=== PATIENT | female | born 1950 | race Two or more races ===

== ENCOUNTER 2025-07-23 06:51 | Emergency (ER) | payer MEDICARE, MEDICAID, SELFPAY ==
[2025-07-23 06:56] VITALS: BP 151/76; PULSE 95; RESP 18; TEMP 36.9; O2SAT 98
--- NOTE | 2025-07-23 07:04 | EKG_ITS ---
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
[2025-07-23 07:05] VITALS: PULSE 102; O2SAT 95; BMI 33.3
--- NOTE | 2025-07-23 07:06 | XR_ITS ---
Examination: CT brain head without contrast. 2-D sagittal coronal reconstructions Date and time of exam: July 23, 2025, 0744 hours, comparison March 19, 2024 INDICATIONS: Diagnosis Parkinson's disease with dizziness and vertigo today CTDI: vol (mGy): 48.1 DLP: (mGycm): 919 Technique: Multiple CT axial sections of the brain have been obtained, 5 mm slice thickness. Contrast has not been administered. 2-D sagittal, coronal reconstructions have been obtained Low dose protocols were performed. One or more of the following dose reduction techniques were used; automated exposure control, adjustment of the mA and/or KV according to patient size, use of iterative reconstruction technique. Findings: No significant ventricular enlargement. Intra-axial or extra-axial hemorrhage density is not seen. No mass effect or midline shift Basal cisterns are not remarkable. Fourth ventricle is midline. Cranial vault intact. Impression: Negative for acute hemorrhage, mass effect or midline shift Advise clinical correlation and follow-up accordingly
--- NOTE | 2025-07-23 07:12 | EDNOTE_ITS ---
ED Dizzyness RME/HPI General Chief Complaint: Dizziness Stated Complaint: dizziness Time Seen by Provider: 07/23/25 07:05 Source: patient Arrival date/time: 07/23/25 06:51 Mode of arrival: EMS Limitations: no limitations RME / HPI RME / HPI Narrative: DR. BETTE WINTERS ED EVALUATION: Patient is a 75-year-old female with medical history notable for Parkinson's, chronic vertigo, hypertension, prior stroke with residual right upper extremity weakness, medication noncompliance, diabetes, brought to the emergency department concerns for vertigo. Says she woke up this morning and felt that the room was spinning. Denies chest pain, palpitations, abdominal pain, dysuria hematuria, melena, bloody stools, drugs, alcohol, smoking. Patient states that she has a chronic tremor, was told that she has Parkinson's, however has not been taking her Parkinson's medications. States that she did not realize she had to take her Parkinson's medications every day. States that she saw a neurologist approximately a month ago, no medication changes were done at that time. Denies any head trauma. Patient does not take any blood thinners. Related Data Home Medications ?Medication ?Instructions ?Recorded ?Confirmed meclizine 25 mg tablet 25 mg PO TID PRN Dizziness 1 09/12/19 07/13/20 montelukast 10 mg tablet 10 mg PO QPM 07/13/20 Previous Rx's ?Medication ?Instructions ?Recorded hydrocodone 5 mg-acetaminophen 325 1 tab PO QID PRN pa in #20 tabs 07/16/20 mg tablet sodium chloride 1,000 mg soluble 1,000 mg PO QDAY #10 tabs 02/26/24 tablet amlodipine 10 mg tablet 10 mg PO QDAY #30 tabs 03/21 aspirin 81 mg tablet,delayed 81 mg PO QDAY #30 tabs release pantoprazole 20 mg tablet,delayed 20 mg PO QDAY #30 ta bs 03/21/24 release (Protonix) Allergies Allergy/AdvReac Type Severity Reaction Status Date / Time No Known Allergies Allergy Verified 07/23/25 07:11 Review of Systems Review of Systems Systems Reviewed: All systems reviewed, normal except as documented Past Medical History Past Medical History NEUROLOGIC: Positive Neurological Disorders, Cerebrovascular Accident and Paralysis CARDIAC: Positive Cardiac Disorders and Hypertension GASTROINTESTINAL: Positive Gastrointestinal Disorders and Gastroesophageal Reflux Disease REPRODUCTIVE: Positive Breast Cancer MUSCULOSKELETAL: Positive Musculoskeletal Disorders and Arthritis PSYCHO/SOCIAL: Positive Anxiety OTHER HISTORY: Positive Hospitalization and Breast Cancer Surgical History SURGICAL: Positive Tubal Ligation Social History SMOKING STATUS: Never smoker SUBSTANCE USE: does not use ALCOHOL: Never ED Exam General Limitations: Present no limitations General appearance: Present alert Head Head exam: Present atraumatic Eye Eye exam: Present normal appearance (Prominent pinguecula bilateral eyes), PERRL, EOMI and scleral icterus ENT ENT exam: Present normal exam and normal oropharynx Neck Neck exam: Present normal inspection Chest Chest inspection: Present normal inspection and symmetric chest wall rise Respiratory Respiratory exam: Present normal lung sounds bilaterally; Absent respiratory distress Cardiovascular Cardiovascular exam: Present regular rate Abdominal Exam Abdominal exam: Present soft; Absent distention or tenderness Extremities Exam Extremities exam: Present normal inspection and full ROM Neurological Exam Neurological exam: Present alert, oriented X3, CN II-XII intact and other (Baseline weakness right upper extremity, resting tremor, strong 5 out of 5 left upper bilateral lower extremities, intact finger-nose, intact [id number], no dysdiadochokinesia) Psychiatric Psychiatric exam: Present normal affect Skin Skin exam: Present warm and dry Course Quality Measures none Orders Category Date Time Status EKG (ED ONLY) *Do not use* NOW Care 07/23/25 07:05 Completed MRI Screening NOW Care 07/23/25 11:[address] head/brain wo con Stat Exams 07/23/25 07:06 Completed EKG (ED Only) Stat Exams 07/23/25 07:04 Draft CBC Stat Lab 07/23/25 07:30 Completed CMP [Comprehensive Metabolic Panel] Stat Lab 07/23/25 07:30 Completed INR [Prothrombin Time with INR] Stat Lab 07/23/25 07:30 Completed Troponin I Stat Lab 07/23/25 07:30 Completed UA, C/S IF [Urinalysis, C/S if Indicated] Stat Lab 07/23/25 07:19 Completed Urine Culture Stat Lab 07/23/25 07:19 Received Metoclopramide Inj [Reglan Inj] Med 07/23/25 07:03 Discontinued 5 mg IVP STAT STA Metoclopramide Inj [Reglan Inj] Med 07/23/25 08:44 Discontinued 5 mg IVP STAT STA Ringers Lactated 1000 ml [Lactated Ringers] 1,000 ml Med 07/23/25 08:43 Discontinued IV 999 mls/hr cefTRIAXone/D5w 1gm IV premix [Rocephin/D5w 1gm IV Med 07/23/25 08:17 Discontinued premix] 1 gm in 50 ml IV STAT Vital Signs Vital signs: Vital Signs Temperature 98.5 F 07/23/25 06:56 Pulse Rate 95 07/23/25 06:56 Respiratory Rate 18 07/23/25 06:56 Blood Pressure 151/76 H 07/23/25 06:56 Pulse Oximetry (%) 98 07/23/25 06:56 Oxygen Delivery Method Room Air 07/23/25 06:56 Dizziness MDM Narrative MDM Narrative:: I, Jen Srivastava, am scribing for and in the presence of Dr. May. Patient is a 75-year-old female is in Emergency Department concerns for vertigo. Vital signs and exam as listed. Concern for exacerbation of her chronic vertigo, metabolic disturbance, urinary tract infection intracranial hemorrhage among others. Patient without any new focal neurodeficits, patient does have a history of chronic vertigo states that her symptoms feel like her prior vertigo episodes. Ordered labs EKG CT brain offered medication for symptom relief CT brain unremarkable, urinalysis with evidence of infection. Will provide patient with antibiotics. Labs without any acute hematologic or significant metabolic abnormality no significant transaminitis troponin not elevated 8:42a reevaluated patient, patient states that when she stands up mild vertigo comes back. When she is laying in bed does not have symptoms. Will provide patient with fluids given concern for possible orthostatic symptoms. 11am reevaluated patient, patient states that she feels better. Will ambulate patient to see how she feels 1232: Nurse states the patient passed the road test and feeling better. Patient no longer wants a MRI and family and patient agree with discharge. I updated patient's sons and daughter at bedside throughout the patient's time in the emergency department. I did let the daughter know that the patient initially had endorsed not taking her medications for Parkinson's, stating that she did not know that she had to take them every day however when I reevaluated her she states that she takes her medications as prescribed. I asked that she monitor the patient's medications closely, and that the patient follow-up with the neurologist and primary care doctor within the next 1 to 2 days. Patient and patient's daughter in agreement. Patient discharged to home hemodynamically stable asymptomatic not in distress. Patient data External records reviewed:: [facility] previous records and EMS form Clinical information provided by:: patient Social determinants that could affect healthcare access:: none Patient has the following chronic illnesses:: Parkinson's, chronic vertigo, hypertension, prior stroke with residual right upper extremity weakness, medication noncompliance, diabetes. How is presenting disease/condition affected by chronic disease/condition?: exa cerbated by Evaluation data The following diagnostics were reviewed and interpreted by me:: lab results, radiology exam(s) and EKG tracing(s) Lab and/or radiology exams considered but not ordered:: None Interpretation Summary: See MDM narrative above. RADIOLOGY Procedure(s): CT head/brain wo [facility] Accession Number(s): [id number] cc: Salvador Dejesus; Rico Obrien MD; Radha May MD~ Examination: CT brain head without contrast. 2-D sagittal coronal reconstructions Date and time of exam: July 23, 2025, 0744 hours, comparison March 19, 2024 INDICATIONS: Diagnosis Parkinson's disease with dizziness and vertigo today CTDI: vol (mGy): 48.1 DLP: (mGycm): 919 Technique: Multiple CT axial sections of the brain have been obtained, 5 mm slice thickness. Contrast has not been administered. 2-D sagittal, coronal reconstructions have been obtained Low dose protocols were performed. One or more of the following dose reduction techniques were used; automated exposure control, adjustment of the mA and/or KV according to patient size, use of iterative reconstruction technique. Findings: No significant ventricular enlargement. Intra-axial or extra-axial hemorrhage density is not seen. No mass effect or midline shift Basal cisterns are not remarkable. Fourth ventricle is midline. Cranial vault intact. Impression: Negative for acute hemorrhage, mass effect or midline shift Advise clinical correlation and follow-up accordingly Dictated By: Rico Obrien MD Medications / Prescriptions Medications or Prescriptions considered but not ordered:: None Medication administrations:: Medication Administration History Discontinued Medications Ceftriaxone Sodium/Dextrose (Rocephin/D5w 1gm Iv Premix) 1 gm in 50 mls @ 100 mls/hr IV STAT STA Stop: 07/23/25 08:46 Last Infusion: 07/23/25 08:55 Dose: Infused Documented By: Admin: 07/23/25 08:25 Dose: 100 mls/hr Documented By: GINA Lactated Ringer's (Lactated Ringers) 1,000 mls @ 999 mls/hr IV .Q1H1M ONE Stop: 07/23/25 09:43 Last Infusion: 07/23/25 10:04 Dose: Infused Documented By: Admin: 07/23/25 09:03 Dose: 999 mls/hr Documented By: GINA Metoclopramide HCl (Metoclopramide Inj 5 Mg/Ml Vial 2 Ml) 5 mg IVP STAT STA; Protocol Stop: 07/23/25 07:04 Last Admin: 07/23/25 07:25 Dose: 5 mg Documented By: GINA Metoclopramide HCl (Metoclopramide Inj 5 Mg/Ml Vial 2 Ml) 5 mg IVP STAT STA; Protocol Stop: 07/23/25 08:45 Last Admin: 07/23/25 09:05 Dose: 5 mg Documented By: GINA See above Consultations Consultation(s) initiated? (list below): No Diagnosis Dizziness Differential Diagnosis: other (benign positional vertigo, Parkinson's related imbalance, and central vertigo) Most likely diagnosis given after review of the tests above:: Vertigo Admission Indicated Admission indicated?: not indicated Admission Request Was there a request for admission?: No Disposition Plan Disposition Plan: Discharge Discharge Attestation Discharge Attestation: The patient and all family members were given an opportunity to ask questions and understood the discharge instructions. Discharge instructions specifically effects, indications for sooner follow up or return to the emergency department, and the expected course of current diagnosis. Patient condition: Stable Discharge Plan Plan Patient Disposition: HOME (Self Care) Prescriptions/Referrals Prescriptions/Med Rec: No Action meclizine 25 mg Tablet 25 mg PO TID PRN (Reason: Dizziness) montelukast 10 mg Tablet 10 mg PO QPM hydrocodone-acetaminophen 5-325 mg tablet 1 tab PO QID MDD 4 PRN (Reason: pain) Qty: 20 0RF sodium chloride 1,000 mg tablet,soluble 1,000 mg PO QDAY Qty: 10 0RF pantoprazole [Protonix] 20 mg tablet,delayed release (DR/EC) 20 mg PO QDAY Qty: 30 0RF aspirin 81 mg tablet,delayed release (DR/EC) 81 mg PO QDAY Qty: 30 0RF amlodipine 10 mg tablet 10 mg PO QDAY Qty: 30 0RF Referrals: Salvador Vallejo [Primary Care Provider] - In 1 week Problem List Clinical Impression: Vertigo Patient/Caregiver Discharge Instructions Education Materials: Vertigo Medicine Tx Additional Instructions: Por favor seguir tomando elena medicamentos rocio la formula.Por favor hidratarse hailee y eugenie manriquez antibioticos. Le recomiendo hacer seguimiento con manriquez neurologo y manriquez medico de cabecera. Regresar de inmediato si tiene empeoramiento de sintomas o nuevos sintomas de preocupacion. Print Language: Lebanese Stand Alone Forms: Felicia Award Info., Work/School Release, Patient Portal Info Letter
[2025-07-23] MEDS: METOCLOPRAMIDE INJ 5 MG/ML VIAL 2 ML IVP ×2 (07:25→09:05)
[2025-07-23 07:37] LABS: Collection Type, Urine Clean Catch
--- NOTE | 2025-07-23 07:45 | PC.NURSE ---
MARTIN FROM HOME FOR DIZZINESS WHEN SHE ATTEMPTS TO SIT UP. PT HAS HX OF VERTIGO AND PARKINSONS, HTN, AND STROKE. PT TOOK VERTIGO MED AT HOME BUT GOT NO RELIEF. VSS ON TELE, JUST RETURNED FROM CT, CALL LU IN REACH, WILL CONT W/POC
[2025-07-23 07:54] LABS: Basophils # (Auto) 0.0 Thou/mm3 (0.0-0.2); Basophils % (Auto) 1 % (0-2.5); Eosinophils # (Auto) 0.2 Thou/mm3 (0.0-0.5); Eosinophils % (Auto) 2 % (0-10); Hematocrit 45.7 % (36.0-46.0); Hemoglobin 15.2 g/dL (12.0-16.0); Immature Granulocytes Auto 0.03 Thou/mm3 (0.00-0.00); Lymphocytes # (Auto) 2.5 Thou/mm3 (1.0-4.8); Lymphocytes % (Auto) 40 % (10-50); Mean Corpuscular HGB Conc 33.3 g/dl (31.0-37.0); Mean Corpuscular Hemoglobin 26.1 pg (25.0-35.0); Mean Corpuscular Volume 79 fL (80-100); Monocytes # (Auto) 0.4 Thou/mm3 (0.0-0.8); Monocytes % (Auto) 6 % (0-12); Neutrophils # (Auto) 3.2 Thou/mm3 (1.8-7.7); Neutrophils % (Auto) 51 % (37-80); Nucleated Red Blood Cell # 0.00 Thou/mm3 (0.00-0.00); Nucleated Red Blood Cell % 0 /100 WBC (0); Platelet Count 235 Thou/mm3 (140-440); RDW Standard Deviation 40.3 fL (36.4-46.3); Red Blood Count 5.82 Miln/mm3 (4.00-5.20); White Blood Count 6.2 Thou/mm3 (3.6-11.0)
[2025-07-23 07:55] LABS: Amorphous Crystals,Urine Present (Absent); Bilirubin,Urine Negative (Negative); Blood,Urine Negative (Negative); Clarity,Urine Clear (Clear/Hazy); Color,Urine Colorless (Lt Yel-Yel); Glucose, Urine 4+ (Negative); Ketones,Urine Negative (Negative); Leukocyte Esterase,Urine Positive (Negative); Nitrite,Urine Negative (Negative); PH,Urine 7.0 (5.0-7.0); Protein,Urine Trace (Neg - Trace); RBC,Urine 5 /hpf (0-3); Specific Gravity,Urine 1.011 (1.001-1.035); Squamous Epithelial Cell,Urine 2 /hpf (0-5); Urobilinogen,Urine Negative mg/dL (0.0-1.0); WBC,Urine 13 /hpf (0-5)
[2025-07-23 07:57] LABS: Culture Indicated,Urine Yes
[2025-07-23 08:17] LABS: Alanine Aminotransferase 26 U/L (10-49); Albumin, Serum 4.6 gm/dL (3.4-4.8); Albumin/Globulin Ratio 1.2 (1.2-2.2); Alkaline Phosphatase 119 U/L (46-116); Anion Gap 12 (7-16); Aspartate Amino Transferase 24 U/L (0-34); BUN/Creatinine Ratio 14 Ratio (12-20); Bilirubin,Total 0.6 mg/dL (0.3-1.2); Blood Urea Nitrogen 13 mg/dL (9-23); Calcium 9.5 mg/dL (8.3-10.6); Calcium (Corrected) 9.5 mg/dL (8.5-10.1); Carbon Dioxide 22.9 mMol/L (20.0-31.0); Chloride 105 mMol/L (98-107); Creatinine (Component) 0.9 mg/dL (0.6-1.3); Estimated Creatinine Clearance 53.0 mL/min (>60); Globulin 3.8 gm/dL (2.3-3.5); Glucose 116 mg/dL (74-106); Osmolality,Calculated 280 (275-295); Potassium 3.4 mMol/L (3.4-5.1); Sodium 140 mMol/L (136-145); Total Protein 8.4 gm/dL (5.7-8.2); Troponin I < 0.020 ng/mL (0.0-0.045); eGFR > 60 See Note
[2025-07-23] MEDS: cefTRIAXone/D5w 1gm IV premix 1 GM/50 ML BAG IV (08:25)
[2025-07-23 08:29] LABS: INR 1.0 (0.9-1.3); Prothrombin Time 10.5 Seconds (9.0-12.2)
[2025-07-23] MEDS: RINGERS LACTATED 1000 ML 1,000 ML 999 ML IV (09:03)
[2025-07-23 10:15] VITALS: BP 126/98; PULSE 86; RESP 18; TEMP 36.8; O2SAT 94
== END 2025-07-23 13:00 | disposition home or self-care (01) ==
PROVIDERS: Emergency Provider Emergency Medicine; PCP Physician Assistant
DX: R42 Dizziness and giddiness (principal); G20.A1 Parkinson's disease without dyskinesia, without mention of fluctuations; E11.9 Type 2 diabetes mellitus without complications; I10 Essential (primary) hypertension; Z91.148 Patient's other noncompliance with medication regimen for other reason
CPT/HCPCS: 36415; 70450; 80053; 81001; 84484; 85025; 85610; 87086; 93005; 96361; 96365; 96375; 96376; 99284; J0696; J2765; J7120